=== PATIENT | male | born 2000 | race African-American/Black ===

== ENCOUNTER 2024-10-15 10:21 | Outpatient (CLI) | payer OTHER, SELFPAY ==
--- NOTE | ~2024-10-15 | MR_ITS ---
MRI of the right foot CLINICAL HISTORY: First MTP joint sprain TECHNIQUE: Sagittal T1-weighted and STIR images, axial T1-weighted, T2 fat-sat, T1 fat-sat images, an d coronal T1-weighted and T2 fat-sat images were performed. Following intravenous administration of 1 6 cc MultiHance gadolinium, T1-weighted fat-sat imaging was performed in the axial, coronal, and sagi ttal planes. FINDINGS: There is hallux valgus, with mild degenerative change at the first MTP joint. Suspected tea r of the first MTP joint plantar plate present. Small joint effusion present at the first MTP joint. No acute fracture or suspicious bone marrow edema identified. Remaining joint spaces are intact. Alexia ateral ligaments throughout the toes appear intact. Lisfranc ligament is intact. No evidence for intermetatarsal bursitis or definite neuroma. Flexor and extensor tendons are intact. There is a large portion of the plantar fascia is intact. Intrinsic musculature of the foot is unrem arkable. Postcontrast images demonstrate enhancement of the synovium of the first MTP joint. IMPRESSION: Hallux valgus with mild degenerative change of the first MTP joint and associated small joint effusio n. Probable associated plantar plate tear at the first MTP joint. Reviewed, dictated and finalized at location . IMPRESSION: Hallux valgus with mild degenerative change of the first MTP joint and associat ed small joint effusion. Probable associated plantar plate tear at the first MTP joint.
== END 2024-10-15 10:22 | disposition home or self-care (01) ==
PROVIDERS: Visit Provider Podiatrist
DX: S93.521D Sprain of metatarsophalangeal joint of right great toe, subsequent encounter (principal); X58.XXXD Exposure to other specified factors, subsequent encounter
CPT/HCPCS: 73720; A9577

== ENCOUNTER 2025-01-07 04:05 | Emergency (ER) | payer OTHER, SELFPAY ==
[2025-01-07] VITALS (9 sets, daily range): BP systolic 121–143; BP diastolic 48–82; PULSE 63–80; RESP 12–18; TEMP 36.6; O2SAT 97–99
--- NOTE | 2025-01-07 04:20 | PC.NURSE ---
On arrival patient is spitting vomit at EMS and staff. Security was contacted due to the patient was attempting to get up out of the stretcher and was becoming aggressive towards staff. EMS and security were able to put the patient back into the bed and hold him until he became cooperative.
[2025-01-07 04:26] LABS: Hematocrit 38.9 % (42.0-52.0); Hemoglobin 13.2 g/dL (14.0-18.0); Immature Granulocyte Percent A 0.2 % (0-0.5); Lymphocytes Absolute Auto 2.26 K/mm3 (0.9-3.2); Mean Corpuscular HGB Conc 33.9 g/dl (32-36); Mean Corpuscular Hemoglobin 31.1 pg (26-34); Mean Corpuscular Volume 91.7 fl (80-100); Nucleated Red Blood Cells Absolute Auto 0.000 K/mm3 (0.0-0.012); Nucleated Red Blood Cells Perc 0.0 % (0.0-0.2); Platelet Count Result 231 k/mm3 (150-375); Red Blood Count 4.24 M/mm3 (4.6-6.20); White Blood Count 5.4 K/mm3 (4.5-10.0)
--- NOTE | 2025-01-07 04:35 | PC.NURSE ---
[place] [employer] contacted due to patients severe increase in aggressive behavior. [employer] showed up and the patient was calmed down and laid back into bed.
[2025-01-07 04:38] LABS: Acetaminophen < 10 ug/mL (10-30); Alanine Aminotransferase 27 U/L (6-50); Albumin Level 4.5 g/dL (3.5-5.1); Alkaline Phosphatase 72 U/L (38-126); Anion Gap 13 mmol/L (4-12); Aspartate Amino Transferase 37 U/L (17-59); Bilirubin,Total 0.9 mg/dL (0.2-1.3); Blood Urea Nitrogen 13 mg/dL (9-20); Calcium 8.7 mg/dL (8.4-10.2); Carbon Dioxide 20 mmol/L (22-30); Chloride 106 mmol/L (98-107); Estimated CRCL calculation 107 ml/min; Estimated Glomerular Filt Rate > 60; Glucose 118 mg/dL (65-110); Magnesium 1.9 mg/dL (1.6-2.3); Potassium 3.6 mmol/L (3.4-5.0); Salicylate < 1.0 mg/dL (2-20); Sodium 139 mmol/L (137-145); Total Protein 7.5 g/dL (6.3-8.2)
[2025-01-07 05:17] LABS: Add Urine Microscopic? YES; Appearance Urine Clear (Clear); Glucose Urine UA Negative (Negative); Leukocyte Esterase Ur Negative LEU/UL (Negative); Need Manual Microscopic Reviewed; Nitrate Urine Negative (Negative); Non Pathogenic Casts 0-2; Specific Grav Ur 1.017 (1.001-1.035)
[2025-01-07 05:22] LABS: Cannabinoid Screen Urine Negative (Negative)
--- NOTE | 2025-01-07 06:02 | ED_ITS ---
HPI - Alcohol General Chief Complaint: Alcohol <Jose Argueta MD - Last Filed: 01/07/25 07:01> Stated Complaint: INTOXICATED, UNCOOPERATIVE, N/V <Jose Argueta MD - Last Filed: 01/07/25 07:01> Time Seen by Provider: 01/07/25 04:28 <Jose Argueta MD - Last Filed: 01/07/25 07:01> History of Present Illness HPI narrative: Patient is a 24-year-old male who presents to the emergency department this morning severely intoxicated. Per report, patient's friends called as he was vomiting and becoming aggressive. No reported trauma and no signs of trauma. Otherwise remainder of the HPI is limited secondary to patient's acute alcohol intoxication. <Jose Argueta MD - Last Filed: 01/07/25 07:01> Related Data Allergies/Adverse Reactions: Allergies Allergy/AdvReac Type Severity Reaction Status Date / Time No Allergy Information Allergy Unknown Verified 01/07/25 05:41 Available <Jose Argueta MD - Last Filed: 01/07/25 07:01> Review of Systems 2 Review of Systems: Unable to obtain full review of systems secondary to patient's intoxication. <Jose Argueta MD - Last Filed: 01/07/25 07:01> Exam 2 Narrative: General: Severely intoxicated otherwise no evidence of trauma. HEENT: PERRL, no rhinorrhea, no post nasal drip, oropharynx clear. Neck: Trachea midline, no JVD, no lymphadenopathy. Cardiovascular: Regular rate and rhythm, no murmurs, rubs or gallops, no peripheral edema. Respiratory: Clear to auscultation bilaterally, no tachypnea, no wheezing, no rhonchi, no rubs, no respiratory distress. Abdomen: Soft, nontender, nondistended, no rebound, no guarding, no peritoneal signs. Musculoskeletal: No joint swelling or deformity, normal muscle tone. Skin: No rashes or petechia, no signs of infection. Psychiatric: Severely intoxicated, agitated, physically combative with staff. Neurological: Severely intoxicated. In all 4 extremities spontaneously, no focal neurological deficits appreciated within the limitation of the examination. <Jose Argueta MD - Last Filed: 01/07/25 07:01> Course Vital Signs Vital signs: Vital Signs Pulse Rate 72 01/07/25 04:07 Respiratory Rate 18 01/07/25 04:07 Blood Pressure 143/82 H 01/07/25 04:07 Pulse Oximetry 99 01/07/25 04:07 Oxygen Delivery Room Air 01/07/25 04:07 Pulse Rate 80 01/07/25 08:52 Respiratory Rate 12 01/07/25 08:52 Blood Pressure 121/67 01/07/25 08:52 Pulse Oximetry 97 01/07/25 08:52 Oxygen Delivery Room Air 01/07/25 04:07 <Jose Argueta MD - Last Filed: 01/07/25 07:01> Vital Signs Pulse Rate 72 01/07/25 04:07 Respiratory Rate 18 01/07/25 04:07 Blood Pressure 143/82 H 01/07/25 04:07 Pulse Oximetry 99 01/07/25 04:07 Oxygen Delivery Room Air 01/07/25 04:07 Pulse Rate 80 01/07/25 08:52 Respiratory Rate 12 01/07/25 08:52 Blood Pressure 121/67 01/07/25 08:52 Pulse Oximetry 97 01/07/25 08:52 Oxygen Delivery Room Air 01/07/25 04:07 <Christy Call MD - Last Filed: 01/07/25 09:48> MDM - Alcohol MDM Narrative Medical decision making narrative: The patient was evaluated by myself in the emergency department. History is obtained from EMS report and physical exam was performed. External medical records were reviewed at this time. IV was established and pertinent tests were ordered. Patient was administered 4 mg of IV Zofran for nausea/vomiting. Laboratory results obtained revealing alcohol level of 246 otherwise unremarkable. UDS negative. Differential diagnosis considerations include alcohol intoxication, dehydration, acute viral syndrome. Comorbidities impacting this visit include none. I have evaluated and discussed social determinants of health with the patient that could potentially impact subsequent diagnosis and treatment plans. Patient was signed out to a.m. ED physician pending clinical sobriety. <Jose Argueta MD - Last Filed: 01/07/25 07:01> The patient was evaluated by myself in the emergency department. History is obtained from EMS report and physical exam was performed. External medical records were reviewed at this time. IV was established and pertinent tests were ordered. Patient was administered 4 mg of IV Zofran for nausea/vomiting. Laboratory results obtained revealing alcohol level of 246 otherwise unremarkable. UDS negative. Differential diagnosis considerations include alcohol intoxication, dehydration, acute viral syndrome. Comorbidities impacting this visit include none. I have evaluated and discussed social determinants of health with the patient that could potentially impact subsequent diagnosis and treatment plans. Patient was signed out to a.m. ED physician pending clinical sobriety. == Patient awake and alert at 9:45 a.m.. He states he would like the IV taken out, calling it a needle. Patient did not drive himself. He is able to stand and bear weight and walk and even performs squats in the department. He is stable enough to be discharged at this time with transportation; plans on taking an Uber to his home. <Christy Call MD - Last Filed: 01/07/25 09:48> Lab Data Result diagrams: 01/07/25 04:20 01/07/25 04:20 <Jose Argueta MD - Last Filed: 01/07/25 07:01> Labs: Lab Results 01/07/25 01/07/25 Range/Units 04:20 05:00 WBC 5.4 (4.5-10.0) K/mm3 RBC 4.24 L (4.6-6.20) M/mm3 Hgb 13.2 L (14.0-18.0) g/dL Hct 38.9 L (42.0-52.0) % MCV 91.7 (80-100) fl MCH 31.1 (26-34) pg MCHC 33.9 (32-36) g/dl RDW 12.2 (11.5-14.5) % Plt Count 231 (150-375) k/mm3 MPV 8.9 (7.4-10.4) fl Immature Gran % (Auto) 0.2 (0-0.5) % Neut % (Auto) 49.1 (45.5-73.1) % Lymph % (Auto) 41.9 (18.3-44.2) % [place] % (Auto) 7.4 (2.6-8.5) % Eos % (Auto) 0.7 (0-4.4) % Baso % (Auto) 0.7 (0.2-1.2) % Lymph # (Auto) 2.26 (0.9-3.2) K/mm3 [place] # (Auto) 0.4 (0.1-0.6) K/mm3 Eos # (Auto) 0.0 (0-0.3) K/mm3 Baso # (Auto) 0.0 (0.0-0.1) K/mm3 Abs Immat Gran (auto) 0.01 (0.00-0.031) K/mm3 Absolute Neuts (auto) 2.7 (1.3-6.7) K/mm3 Absolute Nucleated RBC 0.000 (0.0-0.012) K/mm3 Nucleated RBC % 0.0 (0.0-0.2) % Sodium 139 (137-145) mmol/L Potassium 3.6 (3.4-5.0) mmol/L Chloride 106 (98-107) mmol/L Carbon Dioxide 20 L (22-30) mmol/L Anion Gap 13 H (4-12) mmol/L BUN 13 (9-20) mg/dL Creatinine 1.08 (0.7-1.3) mg/dL Estim Creat Clear Calc 107 ml/min Estimated GFR > 60 (59 - ) Glucose 118 H (65-110) mg/dL Calcium 8.7 (8.4-10.2) mg/dL Magnesium 1.9 (1.6-2.3) mg/dL Total Bilirubin 0.9 (0.2-1.3) mg/dL AST 37 (17-59) U/L ALT 27 (6-50) U/L Alkaline Phosphatase 72 (38-126) U/L Total Protein 7.5 (6.3-8.2) g/dL Albumin 4.5 (3.5-5.1) g/dL Urine Color Yellow (Yellow) Urine Appearance Clear (Clear) Urine pH 6.0 (5.0-9.0) Ur Specific [place] 1.017 (1.001-1.035) Urine Protein Negative (Negative) mg/dL Urine Glucose (UA) Negative (Negative) mg/dL Urine Ketones Negative (Negative) mg/dL Ur Blood (Man) 1+ H (Negative) Urine Nitrate Negative (Negative) Urine Bilirubin Negative (Negative) Urine Urobilinogen 0.2 (<2.0) mg/dL Add Ur Microanalysis Reviewed Leukocyte Esterase Rfl Negative (Negative) DESIREE/UL Urine RBC 0-2 (0-2) /hpf Urine WBC 11-20 H (0-3) /hpf Ur Squamous Epith Cells None seen (Few) /hpf Urine Bacteria None seen /hpf Urine Casts 0-2 Salicylates < 1.0 L (2-20) mg/dL Urine Opiates Screen Negative (Negative) Urine Methadone Screen Negative (Negative) Acetaminophen < 10 L (10-30) ug/mL Ur Barbiturates Screen Negative (Negative) Ur Phencyclidine Scrn Negative (Negative) Ur Amphetamine Screen Negative (Negative) U Benzodiazepines Scrn Negative (Negative) Urine Cocaine Screen Negative (Negative) U Cannabinoids Screen Negative (Negative) Ethyl Alcohol 246 (<10) mg/dL <Jose Argueta MD - Last Filed: 01/07/25 07:01> Lab Results 01/07/25 01/07/25 Range/Units 04:20 05:00 WBC 5.4 (4.5-10.0) K/mm3 RBC 4.24 L (4.6-6.20) M/mm3 Hgb 13.2 L (14.0-18.0) g/dL Hct 38.9 L (42.0-52.0) % MCV 91.7 (80-100) fl MCH 31.1 (26-34) pg MCHC 33.9 (32-36) g/dl RDW 12.2 (11.5-14.5) % Plt Count 231 (150-375) k/mm3 MPV 8.9 (7.4-10.4) fl Immature Gran % (Auto) 0.2 (0-0.5) % Neut % (Auto) 49.1 (45.5-73.1) % Lymph % (Auto) 41.9 (18.3-44.2) % [place] % (Auto) 7.4 (2.6-8.5) % Eos % (Auto) 0.7 (0-4.4) % Baso % (Auto) 0.7 (0.2-1.2) % Lymph # (Auto) 2.26 (0.9-3.2) K/mm3 [place] # (Auto) 0.4 (0.1-0.6) K/mm3 Eos # (Auto) 0.0 (0-0.3) K/mm3 Baso # (Auto) 0.0 (0.0-0.1) K/mm3 Abs Immat Gran (auto) 0.01 (0.00-0.031) K/mm3 Absolute Neuts (auto) 2.7 (1.3-6.7) K/mm3 Absolute Nucleated RBC 0.000 (0.0-0.012) K/mm3 Nucleated RBC % 0.0 (0.0-0.2) % Sodium 139 (137-145) mmol/L Potassium 3.6 (3.4-5.0) mmol/L Chloride 106 (98-107) mmol/L Carbon Dioxide 20 L (22-30) mmol/L Anion Gap 13 H (4-12) mmol/L BUN 13 (9-20) mg/dL Creatinine 1.08 (0.7-1.3) mg/dL Estim Creat Clear Calc 107 ml/min Estimated GFR > 60 (59 - ) Glucose 118 H (65-110) mg/dL Calcium 8.7 (8.4-10.2) mg/dL Magnesium 1.9 (1.6-2.3) mg/dL Total Bilirubin 0.9 (0.2-1.3) mg/dL AST 37 (17-59) U/L ALT 27 (6-50) U/L Alkaline Phosphatase 72 (38-126) U/L Total Protein 7.5 (6.3-8.2) g/dL Albumin 4.5 (3.5-5.1) g/dL Urine Color Yellow (Yellow) Urine Appearance Clear (Clear) Urine pH 6.0 (5.0-9.0) Ur Specific [place] 1.017 (1.001-1.035) Urine Protein Negative (Negative) mg/dL Urine Glucose (UA) Negative (Negative) mg/dL Urine Ketones Negative (Negative) mg/dL Ur Blood (Man) 1+ H (Negative) Urine Nitrate Negative (Negative) Urine Bilirubin Negative (Negative) Urine Urobilinogen 0.2 (<2.0) mg/dL Add Ur Microanalysis Reviewed Leukocyte Esterase Rfl Negative (Negative) DESIREE/UL Urine RBC 0-2 (0-2) /hpf Urine WBC 11-20 H (0-3) /hpf Ur Squamous Epith Cells None seen (Few) /hpf Urine Bacteria None seen /hpf Urine Casts 0-2 Salicylates < 1.0 L (2-20) mg/dL Urine Opiates Screen Negative (Negative) Urine Methadone Screen Negative (Negative) Acetaminophen < 10 L (10-30) ug/mL Ur Barbiturates Screen Negative (Negative) Ur Phencyclidine Scrn Negative (Negative) Ur Amphetamine Screen Negative (Negative) U Benzodiazepines Scrn Negative (Negative) Urine Cocaine Screen Negative (Negative) U Cannabinoids Screen Negative (Negative) Ethyl Alcohol 246 (<10) mg/dL <Christy Call MD - Last Filed: 01/07/25 09:48> Discharge Plan Discharge Clinical Impression: Alcoholic intoxication <Jose Argueta MD - Last Filed: 01/07/25 07:01> Patient Disposition: Home <Jose Argueta MD - Last Filed: 01/07/25 07:01> Condition: Improved <Jose Argueta MD - Last Filed: 01/07/25 07:01> Instructions: Antibiotic Form, Alcohol Intoxication (ED), Abuse of Alcohol (ED) <Jose Argueta MD - Last Filed: 01/07/25 07:01> Additional Instructions: Please follow-up with your family doctor within the next 3-5 days. Return to emergency department if any new or worsening symptoms develop. Rest and maintain your hydration today. <Jose Argueta MD - Last Filed: 01/07/25 07:01> Patient Language: Portuguese <Jose Argueta MD - Last Filed: 01/07/25 07:01> Follow-up/Referrals: Judie,Anusha [Other] - 3 Days <Jose Argueta MD - Last Filed: 01/07/25 07:01> Stand Alone Forms: Work/School Release IP <Jose Argueta MD - Last Filed: 01/07/25 07:01> Time of Disposition: 06:09 <Jose Argueta MD - Last Filed: 01/07/25 07:01> 06:09 <Christy Call MD - Last Filed: 01/07/25 09:48>
[2025-01-07] MEDS: ONDANSETRON INJ 4 MG/2 ML VIAL IV PUSH (06:30)
--- NOTE | 2025-01-07 07:15 | PC.NURSE ---
Assumed care. Sleeping. Awaiting repeat alcohol level at 1100.
--- NOTE | 2025-01-07 09:54 | PC.NURSE ---
Patient ambulatory with steady gait. patient alert and oriented x4. friend is coming to pick patient up for discharge.
== END 2025-01-07 10:13 | disposition home or self-care (01) ==
PROVIDERS: Emergency Medicine; Emergency Provider Student in an Organized Health Care Education/Training Program
DX: F10.129 Alcohol abuse with intoxication, unspecified (principal); Y90.8 Blood alcohol level of 240 mg/100 ml or more; R82.998 Other abnormal findings in urine
CPT/HCPCS: 36415; 80053; 80143; 80179; 80307; 81001; 82077; 83735; 85025; 87086; 96374; 99284; J2405